=== PATIENT | male | born 1980 | race Caucasian/White ===

== ENCOUNTER 2018-06-13 10:55 | Emergency (ER) | payer OTHER ==
[~2018-06-13] VITALS: Ht 190.5 cm; Wt 79.1 kg
[~2018-06-13 10:55] MED LIST: CELEXA10 MG PO; DOXYCYCLINE100 M2 PO; LORTAB 5/500 501 TAB PO; NEXIUM PO; PRILOSEC20 M1 PO; ZITHROMAX Z PA250 MG PO
[2018-06-13 10:58] VITALS: TEMP 98.9
[2018-06-13 11:48] LABS: COLLECTION METHOD CLEAN CATCH
[2018-06-13 11:53] LABS: BASO % 0.6 % (0.0-2.0); EOS # 0.2 (0.0-0.7); EOS % 3.3 % (0-4.0); GRAN # 3.9 (1.4-6.5); GRAN % 58.2 % (42.2-75.2); HEMOGLOBIN 14.1 g/dl (13.5-18.0); LYMPH % 29.4 % (20.0-51.0); MEAN CELL VOLUME 89 fl (80.0-100.0); MEAN CORPUSCULAR HEMOGLOBIN 31 pg (27.0-31.0); MEAN CORPUSCULAR HGB CONC 34 g/dl (33.0-37.0); MEAN PLATELET VOLUME 9.2 fl (7.4-10.4); MONO # 0.6 (0.1-0.6); MONO % 8.3 % (1.7-9.3); PLATELET COUNT 291 K/mm3 (130-400); RED BLOOD COUNT 4.62 M/mm3 (4.20-5.60); REDCELL DISTRIBUTION WIDTH-CV 12.8 % (11.5-14.5)
[2018-06-13 11:55] LABS: MUCOUS Present /lpf; PH 5 (5-8); SQUAMOUS EPITHELIAL 0-2 /hpf; URINE APPEARANCE Clear; URINE BACTERIA None Seen /hpf; URINE BILIRUBIN Negative (NEGATIVE); URINE BLOOD Negative (NEGATIVE); URINE COLOR Yellow; URINE GLUCOSE Negative (NEGATIVE); URINE KETONE Trace (NEGATIVE); URINE LEUKOCYTE ESTERASE Negative (NEGATIVE); URINE NITRATE Negative (NEGATIVE); URINE PROTEIN(semi-quant) 1+ (NEGATIVE); URINE RBC 0-2 /hpf; URINE UROBILINOGEN Negative (NEGATIVE)
[2018-06-13 12:07] LABS: ALANINE AMINOTRANSFERASE 72 U/L (21-72); ALBUMIN 3.9 gm/dL (3.5-5.0); ALKALINE PHOSPHATASE 33 U/L (50-136); ANION GAP 15 mmol/L (7-16); AST,SGOT 42 U/L (15-37); BILIRUBIN,TOTAL 0.3 mg/dL (0.0-1.0); BLOOD UREA NITROGEN 10 mg/dL (9-20); C-REACTIVE PROTEIN < 0.5 mg/dL (0.0-0.9); CALCIUM 9.2 mg/dL (8.4-10.2); CARBON DIOXIDE 24 mmol/L (22-30); CHLORIDE 105 mmol/L (98-107); CREATININE, serum 0.77 mg/dL (0.66-1.25); GLUCOSE 103 mg/dL (74-106); LIPASE 124 U/L (23-300); POTASSIUM 3.2 mmol/L (3.4-5.0); SODIUM 143 mmol/L (137-145); TOTAL PROTEIN 6.9 gm/dL (6.4-8.2)
[2018-06-13] MEDS ORDERED: CLEOCIN HCL300 MG PO ×2 (12:50→13:24)
[2018-06-13] MEDS ORDERED: PROZAC 10MG10 MG PO (13:06)
[2018-06-13 13:25] VITALS: BP 121/62; PULSE 99
== END 2018-06-13 13:25 | disposition home or self-care (01) ==
LOC: COL.ER 10:55
PROVIDERS: Physician Assistant
DX: F17.210 Nicotine dependence, cigarettes, uncomplicated (principal); K02.9 Dental caries, unspecified; R52 Pain, unspecified; F31.9 Bipolar disorder, unspecified
CPT/HCPCS: J1885; J7030

== ENCOUNTER → 2019-01-14 | Outpatient (CLI) | payer OTHER ==
[~2019-01-14] MED LIST changes: +CLEOCIN HCL300 MG PO; +PROZAC 10MG10 MG PO
== END ==
LOC: MHCPAIN 09:21
DX: G89.29 Other chronic pain (principal); M47.817 Spondylosis without myelopathy or radiculopathy, lumbosacral region; M54.16 Radiculopathy, lumbar region; M53.3 Sacrococcygeal disorders, not elsewhere classified
CPT/HCPCS: G0463

== ENCOUNTER → 2019-01-17 | Outpatient (CLI) | payer OTHER | LOC: MHCPAIN 10:20 | DX: M47.817 Spondylosis without myelopathy or radiculopathy, lumbosacral region (principal); M54.16 Radiculopathy, lumbar region | CPT/HCPCS: J1100; Q9967 ==

== ENCOUNTER → 2019-01-30 | Outpatient (CLI) | payer OTHER | LOC: MHCPAIN 08:57 | DX: G89.29 Other chronic pain (principal); M47.817 Spondylosis without myelopathy or radiculopathy, lumbosacral region; M54.16 Radiculopathy, lumbar region; M53.3 Sacrococcygeal disorders, not elsewhere classified | CPT/HCPCS: G0463 ==

== ENCOUNTER 2020-08-06 07:46 | Emergency (ER) | payer OTHER ==
[~2020-08-06] VITALS: Ht 190.5 cm; Wt 97.7 kg
[2020-08-06 09:10] VITALS: BP 111/54; PULSE 79; TEMP 98.1
== END 2020-08-06 08:28 | disposition home or self-care (01) ==
LOC: COL.ER 07:46
DX: T23.102A Burn of first degree of left hand, unspecified site, initial encounter (principal); T23.111A Burn of first degree of right thumb (nail), initial encounter; Z88.0 Allergy status to penicillin; Z88.8 Allergy status to other drugs, medicaments and biological substances; X08.8XXA Exposure to other specified smoke, fire and flames, initial encounter; Y92.009 Unspecified place in unspecified non-institutional (private) residence as the place of occurrence of the external cause

== ENCOUNTER 2021-11-12 01:55 | Emergency (ER) | payer OTHER ==
[~2021-11-12] VITALS: Ht 190.5 cm; Wt 88.6 kg
[2021-11-12 03:14] VITALS: BP 117/83; PULSE 90; TEMP 99.9
== END 2021-11-12 03:14 | disposition home or self-care (01) ==
LOC: COL.ER 01:55
DX: B34.9 Viral infection, unspecified (principal); F17.210 Nicotine dependence, cigarettes, uncomplicated

== ENCOUNTER → 2024-09-25 | Outpatient (CLI) | payer OTHER | LOC: COL.RAD 09:45 | DX: Z01.89 Encounter for other specified special examinations (principal); M79.671 Pain in right foot; M79.672 Pain in left foot ==